=== PATIENT | female | born 1965 | race Caucasian/White ===

== ENCOUNTER 2021-09-19 02:10 | Emergency (ER) | payer OTHER, SELFPAY ==
--- NOTE | ~2021-09-19 | XR_ITS ---
XR chest 2V 09/19/2021 02:53 Indication: Dizziness Procedure: 2 view chest Comparison: No prior studies for comparison. Findings: Right lower lobe infiltrates posteriorly. Heart size normal. Left lung clear. No pleural ef fusion or pneumothorax. Impression: 1: Right lower lobe infiltrates may represent atelectasis or developing pneumonia. Reviewed, dictated and finalized at location A. Impression: 1: Right lower lobe infiltrates may represent atelectasis or developing pneumon ia.
--- NOTE | ~2021-09-19 | CT_ITS ---
EXAMINATION: CT BRAIN W/O DATE: 09/19/2021 02:51 INDICATION: Extreme dizziness. Nausea. TECHNIQUE: Computed tomography (CT) of the head was performed without intravenous contrast. The dose- length product was 605.33 mGy-cm. Automated exposure control and iterative reconstruction technique w ere employed. COMPARISON: No prior studies for comparison. FINDINGS: Normal brain parenchymal volume for age. Normal murray-white differentiation. No acute intrac ranial hemorrhage, infarction, mass or mass effect. No ventriculomegaly or midline shift. Midline sagittal images demonstrate a normal corpus callosum, c raniovertebral junction and sella turcica. Basilar cisterns are patent. Paranasal sinuses and mastoids are pneumatized. No depressed skull fractures. IMPRESSION: 1. No acute intracranial abnormality. Reviewed, dictated and finalized at location A.
--- NOTE | 2021-09-19 02:14 | ECG_ITS ---
Measurements Intervals [place] Rate: 55 P: 48 MA: 186 QRS: 8 QRSD: 100 T: 18 QT: 466 QTc: 447 Interpretive Statements SINUS BRADYCARDIA NO PREVIOUS ECG AVAILABLE FOR COMPARISON Electronically Signed On 09-19-2021 13:45:57 CDT by Ángel Astudillo M.D.
[2021-09-19 02:15] VITALS: BP 113/53; PULSE 80; RESP 20; TEMP 36.3; O2SAT 94
--- NOTE | 2021-09-19 02:16 | ED.DIZZY ---
HPI - Dizziness General Chief Complaint: Dizziness <Ángel Naidu APRN - Last Filed: 09/19/21 02:37> Stated Complaint: dizziness x 2 weeks worse tonight <Ángel Naidu APRN - Last Filed: 09/19/21 02:37> Time Seen by Provider: 09/19/21 02:54 <Ángel Naidu APRN - Last Filed: 09/19/21 02:37> History of Present Illness HPI Narrative: 55-year-old female presents to the emergency room via EMS for evaluation for dizziness which has been present for 2 weeks. Patient states tonight the dizziness was worse, is accompanied with multiple episodes of vomiting. Patient states that dizziness is worse with sudden movements or changes of position. Patient denies any tinnitus or hearing loss. Patient denies injury or trauma. Patient denies any visual changes. Patient denies any recent upper respiratory infection. <Ángel Naidu APRN - Last Filed: 09/19/21 02:37> Related Data Allergies/Adverse Reactions: Allergies Allergy/AdvReac Type Severity Reaction Status Date / Time Penicillins Allergy Unknown Rash Verified 09/19/21 02:21 <Ángel Naidu APRN - Last Filed: 09/19/21 02:37> Review of Systems Review of Systems: CONSTITUTIONAL: Denies fever, chills, or sweats. EYES: Denies visual changes, redness, or discharge. ENT: Denies rhinorrhea, congestion, sore throat, or otalgia. CARDIOVASCULAR: Denies chest pain, palpitations, or edema. RESPIRATORY: Denies cough or dyspnea. GASTROINTESTINAL: Reports nausea vomiting GENITOURINARY: Denies dysuria or hematuria. SKIN: Denies rash or itching. MUSCULOSKELETAL: Denies back pain, joint pain, or myalgia. NEUROLOGIC: Reports dizziness PSYCHIATRIC: Denies anxiety or depression. <Ángel Naidu APRN - Last Filed: 09/19/21 02:37> Exam Narrative: GENERAL: Well-appearing, well-nourished, and in no acute distress. HEAD: Normocephalic, atraumatic. EYES: PERRLA and EOMI. horizontal nystagmus ENT: Nares clear, no rhinorrhea or epistaxis. Mucous membranes moist. Oropharynx without tonsillar hypertrophy exudate or other lesions. Moderate cerumen noted in left ear canal CHEST: Clear to auscultation. No respiratory distress. No wheezes rales or rhonchi HEART: Regular rate and rhythm. No murmur heard. Normal peripheral pulses. EXTREMITIES: Normal range of motion. No edema. SKIN: Warm, dry, no rash. NEURO: No focal deficits. Alert and oriented x3. No unilateral focal deficits. Strength is 5/5 upper lower extremities bilaterally, cerebellar exam is normal PSYCH: Normal mood and affect. <Ángel Naidu APRN - Last Filed: 09/19/21 02:37> Course Vital Signs Vital signs: Vital Signs Temperature 36.3 C L 09/19/21 02:15 Pulse Rate 80 09/19/21 02:15 Respiratory Rate 20 09/19/21 02:15 Blood Pressure 113/53 L 09/19/21 02:15 Pulse Oximetry 94 09/19/21 02:15 Oxygen Delivery Room Air 09/19/21 02:15 Temperature 36.3 C L 09/19/21 02:15 Pulse Rate 68 09/19/21 05:15 Respiratory Rate 18 09/19/21 05:15 Blood Pressure 110/75 09/19/21 05:15 Pulse Oximetry 100 09/19/21 05:15 Oxygen Delivery Room Air 09/19/21 02:15 <Ángel Naidu APRN - Last Filed: 09/19/21 02:37> Vital Signs Temperature 36.3 C L 09/19/21 02:15 Pulse Rate 80 09/19/21 02:15 Respiratory Rate 20 09/19/21 02:15 Blood Pressure 113/53 L 09/19/21 02:15 Pulse Oximetry 94 09/19/21 02:15 Oxygen Delivery Room Air 09/19/21 02:15 Temperature 36.3 C L 09/19/21 02:15 Pulse Rate 68 09/19/21 05:15 Respiratory Rate 18 09/19/21 05:15 Blood Pressure 110/75 09/19/21 05:15 Pulse Oximetry 100 09/19/21 05:15 Oxygen Delivery Room Air 09/19/21 02:15 <Nikita Newman MD - Last Filed: 09/19/21 05:59> MDM - Dizziness MDM Narrative Medical decision making narrative: I received signout on the patient pending labs and imaging. Labs and imaging returned and were clinically unremarkable. I reassessed the patient and she reports
[2021-09-19] MEDS: SODIUM CHLORIDE 0.9% IV 1,000 ML 999 ML IV CONT (02:24)
[2021-09-19] MEDS: METOCLOPRAMIDE HCL INJ 10 MG/2 ML VIAL IV PUSH (02:24)
[2021-09-19] MEDS: diphenhydrAMINE HCl INJ 50 MG/ML VIAL 25 MG IV PUSH (02:24)
[2021-09-19 03:05] LABS: Alanine Aminotransferase 42 U/L (6-35); Albumin Level 4.4 g/dL (3.5-5.1); Alkaline Phosphatase 66 U/L (38-126); Anion Gap 8 mmol/L (8-16); Aspartate Amino Transferase 26 U/L (14-36); Bilirubin,Total 0.2 mg/dL (0.2-1.3); Blood Urea Nitrogen 14 mg/dL (7-17); Calcium 9.2 mg/dL (8.4-10.2); Carbon Dioxide 26 mmol/L (22-30); Chloride 106 mmol/L (98-107); Estimated CRCL calculation 65 ml/min; Estimated Glomerular Filt Rate > 60; Glucose 141 mg/dL (65-110); Potassium 3.8 mmol/L (3.4-5.0); Sodium 140 mmol/L (137-145)
[2021-09-19 03:06] LABS: Basophils Absolute Auto 0.1 K/mm3 (0.0-0.1); Basophils Percent Auto 0.9 % (0.2-1.2); Eosinophils Absolute Auto 0.1 K/mm3 (0-0.3); Eosinophils Percent Auto 2.2 % (0-4.4); Hematocrit 42.3 % (37.0-47.0); Hemoglobin 14.1 g/dL (12.0-15.0); Immature Granulocyte Absolute 0.02 K/mm3 (0.00-0.031); Immature Granulocyte Percent A 0.3 % (0-0.5); Lymphocytes Absolute Auto 1.87 K/mm3 (0.9-3.2); Lymphocytes Percent Auto 29.6 % (18.3-44.2); Mean Corpuscular HGB Conc 33.3 g/dl (32-36); Mean Corpuscular Hemoglobin 32.2 pg (26-34); Mean Corpuscular Volume 96.6 fl (80-100); Mean Platelet Volume 9.7 fl (7.4-10.4); Monocytes Absolute Auto 0.6 K/mm3 (0.1-0.6); Monocytes Percent Auto 9.5 % (2.6-8.5); Neutrophils Absolute Auto 3.6 K/mm3 (1.3-6.7); Neutrophils Percent Auto 57.5 % (45.5-73.1); Platelet Count Result 264 k/mm3 (150-375); Red Blood Count 4.38 M/mm3 (4.2-5.4); White Blood Count 6.3 K/mm3 (4.5-10.0)
[2021-09-19 03:17] LABS: Troponin I < 0.012 ng/mL (0.000-0.034)
[2021-09-19] MEDS: MECLIZINE HCL 25 MG TABLET PO (03:32)
[2021-09-19 03:51] VITALS: BP 101/64; PULSE 56; RESP 16; O2SAT 97
[2021-09-19 05:15] VITALS: BP 110/75; PULSE 68; RESP 18; O2SAT 100
== END 2021-09-19 05:16 | disposition home or self-care (01) ==
PROVIDERS: Nurse Practitioner Family; Emergency Provider Emergency Medicine
DX: R42 Dizziness and giddiness (principal); R00.1 Bradycardia, unspecified
CPT/HCPCS: 36415; 70450; 71046; 80053; 84484; 85025; 93005; 96361; 96374; 96375; 99284; A9270; J1200; J2765; J7030